=== PATIENT | male | born 1950 | race Caucasian/White ===

== ENCOUNTER 2020-09-23 18:41 | Emergency (ER) | payer MEDICARE, SELFPAY ==
--- NOTE | ~2020-09-23 | XR_ITS ---
EXAMINATION: XR shoulder LT min 2V DATE: 09/23/2020 19:55 INDICATION: Left shoulder pain. TECHNIQUE: 4 views of left shoulder were obtained. COMPARISON: None. FINDINGS: Bone alignment is normal. No fracture. There is mild osteoarthritis of glenohumeral joint a nd moderate osteoarthritis of acromioclavicular joint. IMPRESSION: 1. Polyarticular osteoarthritis. Reviewed, dictated and finalized at location A. AL DIRECTOR
[2020-09-23 19:32] VITALS: BP 176/91; PULSE 73; RESP 19; TEMP 36.1; O2SAT 96
--- NOTE | 2020-09-23 20:57 | ED.UPPEXIN ---
HPI - Extremity Injury (Upper) General Chief Complaint: Extremity Injury, Upper Stated Complaint: left shoulder pain Time Seen by Provider: 09/23/20 20:18 Source: patient and family Mode of arrival: ambulatory Limitations: no limitations History of Present Illness HPI narrative: Patient 70 years old presents with pain and left shoulder after trying to pull something heavy out of his track. Started pain increased with certain movement, better at rest. Related Data Allergies Allergy/AdvReac Type Severity Reaction Status Date / Time No Known Allergies Allergy Verified 09/23/20 20:18 Review of Systems Review of Systems: Narrative: CONSTITUTIONAL: Denies fever, chills, or sweats. EYES: Denies visual changes, redness, or discharge. ENT: Denies rhinorrhea, congestion, sore throat, or otalgia. CARDIOVASCULAR: Denies chest pain, palpitations, or edema. RESPIRATORY: Denies cough or dyspnea. GASTROINTESTINAL: Denies abdominal pain, nausea, vomiting, or diarrhea. GENITOURINARY: Denies dysuria or hematuria. SKIN: Denies rash or itching. MUSCULOSKELETAL: Denies back pain, joint pain, or myalgia. NEUROLOGIC: Denies headache, numbness, or weakness. PSYCHIATRIC: Denies anxiety or depression. PMFSH Past Medical History Medical History Controlled type 2 diabetes mellitus with diabetic autonomic neuropathy, with long-term current use of insulin Mixed hyperlipidemia due to type 2 diabetes mellitus Vitamin B deficiency, unspecified Family History Family History Father Family history of coronary artery disease Family history of congestive heart failure Social History Social History Smoking status: Current every day smoker Second hand tobacco smoke exposure: No Alcohol intake: current Gender identity (if verbalized by the patient): Male Exam Narrative: Exam Narrative: General appearance: Well-developed, well-nourished Skin: Normal color Head: Normocephalic, nontraumatic Eyes: Clear conjunctiva ENT: Oropharynx normal, ears normal, nose normal Neck: Supple, nontender Chest and respiratory: Airway patent, no respiratory distress, no accessory muscle use Heart: Regular rate/rhythm Abdomen: Soft, nontender, no organomegaly, quiet bowel sounds Vascular: Normal peripheral pulses, normal capillary refill. Musculoskeletal: Normal range of motion, slight tenderness anteriorly, no deformity, no swelling Neurologic: Alert and oriented ?3, CLINICAL SOCIOLOGIST is normal as tested, no gross motor deficit Course Course Emergency Course: Therapeutic stable Vital Signs Vital signs: Vital Signs Temperature 36.1 C L 09/23/20 19:32 Pulse Rate 73 09/23/20 19:32 Respiratory Rate 19 09/23/20 19:32 Blood Pressure 176/91 H 09/23/20 19:32 Pulse Oximetry 96 09/23/20 19:32 Temperature 36.1 C L 09/23/20 19:32 Pulse Rate 73 09/23/20 19:32 Respiratory Rate 19 09/23/20 19:32 Blood Pressure 176/91 H 09/23/20 19:32 Pulse Oximetry 96 09/23/20 19:32 MDM - Extremity Injury (Upper) MDM Narrative Medical decision making narrative: Left shoulder strain/sprain is my concern. X-ray left shoulder ordered. [place] 1 tablet ordered. Critical Care Time Critical Care Time Critical Care Time: No Discharge Plan Discharge Clinical Impression: Left shoulder strain Qualifiers: Encounter type: initial encounter Qualified Code(s): S46.912A - Strain of unspecified muscle, fascia and tendon at shoulder and upper arm level, left arm, initial encounter Patient Disposition: Home, Self-Care Condition: Stable Ins
[2020-09-23 20:58] VITALS: BP 152/94; PULSE 69; RESP 18; TEMP 37.1; O2SAT 96
[2020-09-23] MEDS: HYDROcodone/acetaminophen (*CRX) 5-325 MG TABLET 1 TAB PO (21:05)
== END 2020-09-23 21:36 | disposition home or self-care (01) ==
PROVIDERS: Emergency Provider Emergency Medicine; PCP Internal Medicine
DX: S46.912A Strain of unspecified muscle, fascia and tendon at shoulder and upper arm level, left arm, initial encounter (principal); E11.43 Type 2 diabetes mellitus with diabetic autonomic (poly)neuropathy; Z79.4 Long term (current) use of insulin; E78.2 Mixed hyperlipidemia; E53.9 Vitamin B deficiency, unspecified; X50.0XXA Overexertion from strenuous movement or load, initial encounter; F17.200 Nicotine dependence, unspecified, uncomplicated
CPT/HCPCS: 73030; 99283; A9270

== ENCOUNTER 2022-03-18 13:33 | Emergency (ER) | payer MEDICARE, SELFPAY ==
--- NOTE | ~2022-03-18 | XR_ITS ---
XR lumbar spine 2-3V 03/18/2022 14:03 Indication: Low back pain Procedure: 4 views lumbar spine Comparison: No prior studies for comparison. Findings: There is mild dextroscoliosis. There is disc narrowing at all lumbar levels. No acute fract ure, subluxation or dislocation. There is moderate multilevel facet hypertrophy. No evidence for spon dylolisthesis. There is mild atherosclerosis of the aorta. There are surgical coils overlying the abd omen, likely from previous hernia repair. Impression: 1: Moderate lumbar spondylosis with dextroscoliosis. Reviewed, dictated and finalized at location B. Impression: 1: Moderate lumbar spondylosis with dextroscoliosis.
[2022-03-18 13:38] VITALS: BP 149/79; PULSE 70; RESP 16; TEMP 36.5; O2SAT 97
--- NOTE | 2022-03-18 14:10 | ED.BACK ---
HPI - Back Pain/Injury General Chief Complaint: Back Pain/Injury Stated Complaint: left lower back and tailbone pain x 1 week Time Seen by Provider: 03/18/22 13:41 History of Present Illness HPI Narrative: 71-year-old male presented the emergency room for evaluation of left lower back pain. States pain is been present for about 2 weeks. Pain began when he was on his tractor and he had a bump causing him to jump off of his tractor trailer and landed hard. Patient states the pain is worse with certain movements. Has been to the chiropractor recently, stating that that mildly alleviated the symptoms. Has been taking naproxen on a daily basis to help with this pain. Denies any radiating pain or saddle anesthesia. Related Data Home Medications Medication Instructions Recorded Confirmed mecobalamin (vitamin B12) 1,000 1,000 mcg PO DAILY 01/26/21 02/23/22 mcg chewable tablet dapagliflozin 10 mg tablet 10 mg PO DAILY 02/24/22 (Farxiga) Allergies Allergy/AdvReac Type Severity Reaction Status Date / Time No Known Allergies Allergy Verified 03/18/22 13:33 Review of Systems Review of Systems: CONSTITUTIONAL: Denies fever, chills, or sweats. EYES: Denies visual changes, redness, or discharge. ENT: Denies rhinorrhea, congestion, sore throat, or otalgia. CARDIOVASCULAR: Denies chest pain, palpitations, or edema. RESPIRATORY: Denies cough or dyspnea. GASTROINTESTINAL: Denies abdominal pain, nausea, vomiting, or diarrhea. GENITOURINARY: Denies dysuria or hematuria. SKIN: Denies rash or itching. MUSCULOSKELETAL: Reports low back pain NEUROLOGIC: Denies headache, numbness, dizziness, or weakness. PSYCHIATRIC: Denies anxiety or depression. 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 Hypothyroidism, unspecified Idiopathic gout, multiple sites Insulin pump fitting or adjustment Mixed hyperlipidemia Mixed hyperlipidemia due to type 2 diabetes mellitus Vitamin B deficiency, unspecified Vitamin D deficiency Surgical History Surgical History Cataract 01/2021, surgery History of back surgery History of hernia surgery Hx of appendectomy Family History Family History Father Family history of coronary artery disease Family history of congestive heart failure Cerebrovascular accident Sibling Diabetes mellitus Thyroid disorder Other Asthma Heart disease Hypertension Social History Social History Smoking status: Never smoker Tobacco type: cigars Smokeless tobacco user: chewing tobacco Second hand tobacco smoke exposure: Yes Additional smoking assessment comments: Chews 1 cigar daily Alcohol intake: current Drinks per week: 3 Alcohol use details: Darrion Goodwin Substance use: never Additional occupation/education comments: [employer] Gender identity (if verbalized by the patient): Male Spiritual care concerns: No Agree to blood products: Yes Exam Narrative: GENERAL: Well-appearing, well-nourished, no physical limitations, and in no acute distress. HEAD: Normocephalic, atraumatic. EYES: Conjunctivae normal, PERRLA and EOMI. CHEST: Clear to auscultation. No respiratory distress. No wheezes rales or rhonchi. No tenderness. HEART: Regular rate and rhythm. No murmur heard. Normal peripheral pulses. BACK: Left lumbar/SI joint tenderness; pain with right rotational and
== END 2022-03-18 14:33 | disposition home or self-care (01) ==
PROVIDERS: Emergency Provider Nurse Practitioner Family; PCP Family Medicine
DX: M54.50 Low back pain, unspecified (principal); M47.816 Spondylosis without myelopathy or radiculopathy, lumbar region; I12.9 Hypertensive chronic kidney disease with stage 1 through stage 4 chronic kidney disease, or unspecified chronic kidney disease; E11.22 Type 2 diabetes mellitus with diabetic chronic kidney disease; E11.43 Type 2 diabetes mellitus with diabetic autonomic (poly)neuropathy; N18.4 Chronic kidney disease, stage 4 (severe); K31.84 Gastroparesis; E03.9 Hypothyroidism, unspecified; M10.9 Gout, unspecified; E78.2 Mixed hyperlipidemia; E55.9 Vitamin D deficiency, unspecified; E53.8 Deficiency of other specified B group vitamins; F17.220 Nicotine dependence, chewing tobacco, uncomplicated; Z79.899 Other long term (current) drug therapy; Z79.82 Long term (current) use of aspirin; Z79.4 Long term (current) use of insulin
CPT/HCPCS: 72100; 99283